=== PATIENT | male | born 1985 | race Caucasian/White ===

== ENCOUNTER 2018-07-30 08:20 | Emergency (ER) | payer OTHER, SELFPAY ==
[2018-07-30 08:26] VITALS: BP 170/110; PULSE 110; RESP 13; TEMP 37; O2SAT 98
--- NOTE | 2018-07-30 08:50 | ED_ITS ---
HPI - Dental/Oral General Chief complaint: Dental/Oral Stated complaint: swollen left side of face Time Seen by Provider: 07/30/18 08:39 Source: patient and family () Mode of arrival: ambulatory Limitations: no limitations History of Present Illness HPI Narrative: This is a 33-year-old male comes to the emergency department complaint of some dental pain. Patient states he had some mild swelling yesterday of the face, went to bed and woke up today and had significant swelling that she can just under the eye. Patient states he continues to have pain but it has been controlled with Aleve. Patient states he had a root canal in that tooth in the past and so he was set up for an appointment today with dentistry but then worsened overnight so he came here. Patient denies any fevers, he denies any difficulty with breathing, he denies any purulent drainage or obvious areas of abscess within the mouth. Patient denies any nausea or vomiting, no difficulty breathing. No other GI or urinary symptoms. Patient states he is otherwise healthy with no other past medical issues. No allergies to medications. Other than his root canal he is denying any other surgeries. Location: Tooth # 2 1. pain Related Data Previous Rx's Medication Instructions Recorded penicillin V potassium 500 mg PO QID #40 tab 07/30/18 Allergies Allergy/AdvReac Type Severity Reaction Status Date / Time No Known Drug Allergies Allergy Verified 07/30/18 08:55 Review of Systems Review of Systems ROS Unobtainable: All systems reviewed & are unremarkable except as noted in HPI and below ENT Ears, Nose, Mouth, and Throat: Reports as per HPI, Denies change in voice, Reports dental pain, Denies facial pain, Denies hoarseness, Denies lip swelling , Denies throat swelling, Denies tongue swelling and Reports other (facial swelling) Cardiovascular Denies dyspnea and Denies dyspnea on exertion Respiratory Denies chest congestion, Denies cough, Denies dyspnea, Denies dyspnea on exertion and Denies wheezing Gastrointestinal Gastrointestinal: Denies abdominal pain, Denies change in bowel habits, Denies diarrhea, Denies nausea and Denies vomiting Integumentary/Breasts Denies erythema and Denies rash Allergic/Immunologic Denies lip swelling, Denies throat swelling, Denies tongue swelling and Denies wheezing Exam Narrative Exam Narrative: GEN: well nourished, well appearing male, alert and oriented x 3 , patient appears to be in mild distress. HEENT: Atraumatic, pupils are equal round reactive to light, extraocular movements are intact, nares are clear, TMs are clear with no fluid, there is no conjunctival pallor. Throat is clear without any exudates, erythema, tonsillar enlargement or uvular deviation, patient has swelling of the right cheek extending up underneath the eye, there is some mild induration but no fluctuance. Patient does not appear to have any oropharyngeal swelling that I can appreciate. He has some mild tenderness over the upper left tooth. Patient does not have any swelling of the posterior oropharynx, tongue or underneath the tongue. Patient has no muffled voice, he has no hoarseness. Patient does not appear to have poor dentition. I does not any tenderness with palpation over the teeth. I am unable to palpate any enlargement or changes to the [place] a gland or ducts in the mouth. HEART: Regular rate and rhythm without murmur, clicks, rubs. LUNGS:Lungs clear to auscultation, no wheezes, rales, crackles, chest moves symmetrically ABD:bowel sounds normal, soft, non-tender, no guarding, rebound, rigidity, no masses noted, no hepatosplenomegaly MSCL: Non-tender, no muscle atrophy, muscles strength 5/5 upper and lower extremities, full range of motion, normal gait NEURO:CN 2-12 intact, sensation normal Initial Vital Signs Initial Vital Signs: Vital Signs Temperature 98.6 F 07/30/18 08:26 Pulse Rate 110 H 07/30/18 08:26 Respiratory Rate 13 07/30/18 08:26 Blood Pressure 170/110 H 07/30/18 08:26 Pulse Oximetry 98 07/30/18 08:26 Course Orders Ordered: Discontinued Medications Dexamethasone (Decadron) 10 mg PO NOW ONE Stop: 07/30/18 08:49 Last Admin: 07/30/18 09:15 Dose: 10 mg Penicillin V Potassium (Veetids) 500 mg PO NOW ONE Stop: 07/30/18 08:49 Last Admin: 07/30/18 09:15 Dose: 500 mg Vital Signs - 8 hr 07/30/18 08:26 Temperature 98.6 F Pulse Rate 110 H Respiratory Rate 13 Blood Pressure 170/110 H Pulse Oximetry 98 MDM - Dental/Oral MDM Narrative Medical decision making narrative: I discussed with patient we did discuss doing an IV, lab work and imaging but patient is comfortable starting with oral antibiotics and a single dose of Decadron for swelling with close follow-up. He is planning to call the dentist today for his appointment today. We did discuss if he had any increase in swelling he needs to return to have all of that done. Patient is not having any airway involvement at this time, suspect facial cellulitis from dental infection. No signs of sialadenitis, prostatitis or other facial issues, there is no signs of periorbital or orbital cellulitis. Discharge Plan Departure Patient Disposition: Home Clinical Impression: Cellulitis of face Discharge Date/Time: 07/30/18 09:50 Interventions: ED Discharge Assessment Last Done: 07/30/18 09:50 Instructions: DI for Cellulitis -- Adult Activity Restrictions/Additional Instructions: Call your dentist today to see if they wish you to tender appointment today or follow-up in the next several days. Take penicillin every 4 hr until gone. Continue Aleve and/or Tylenol as needed for pain. Return for any increase in swelling, redness, swelling of the mouth, tongue, lips, difficulty breathing, stridor or hoarseness, vision changes, rapidly increasing pain or other new or concerning symptoms. Prescriptions: New penicillin V potassium 500 mg tablet 500 mg PO QID Qty: 40 RF: 0
[2018-07-30] MEDS: DEXAMETHASONE 10 MG/ML VIAL PO (09:15)
[2018-07-30] MEDS: PENICILLIN VK 250 MG TABLET 500 MG PO (09:15)
[2018-07-30 09:50] VITALS: BP 141/93; PULSE 84; RESP 18; O2SAT 98
== END 2018-07-30 09:50 | disposition home or self-care (01) ==
PROVIDERS: Emergency Provider Emergency Medicine
DX: L03.211 Cellulitis of face (principal)
CPT/HCPCS: 99282; 99283; J1100

== ENCOUNTER → 2025-05-07 08:26 | Outpatient (CLI) | payer OTHER, SELFPAY ==
[2025-05-07 09:14] LABS: Hematocrit 43.8 % (41-53); Hemoglobin 15.2 g/dL (13.5-17.5); Mean Corpuscular HGB Conc 34.7 % (30-36); Mean Corpuscular Hemoglobin 31.2 PG (26-34); Mean Corpuscular Volume 90.1 fL (80-100); Platelet Count 294 X10^3/uL (150-400)
[2025-05-07 09:29] LABS: Hemoglobin A1C% w Est Avg Glu 5.3 % (4.0-6.0)
[2025-05-07 09:36] LABS: Alanine Aminotransferase 59 IU/L (<50); Albumin 4.7 g/dL (3.5-5.0); Albumin Globulin Ratio 1.5 (1.0-2.8); Alkaline Phosphatase 45 U/L (38-126); Blood Urea Nitrogen 10 mg/dL (9-20); Calcium 9.5 mg/dL (8.4-10.2); Carbon Dioxide 28 mmol/L (22-32); Chloride 100 mmol/L (98-107); Cholesterol 286 mg/dL (140-199); Estimated Glomerular Filt Rate > 60 mL/min (>60); Globulin 3.1 g/dL (1.7-4.1); Glucose 95 mg/dL (70-99); HDL Cholesterol 64 mg/dL (40-60); HEMOLYSIS < 15 (0-50); Potassium 4.5 mmol/L (3.4-5.1); Sodium 137 mmol/L (137-145); Total Protein 7.8 g/dL (6.3-8.2); Triglycerides 225 mg/dL (35-150)
[2025-05-07 10:21] LABS: HIV 1 & 2 Ab/Ag 4th Gen Combo NEGATIVE (NEGATIVE); Hep C Virus Ab w/Reflex Quant NEGATIVE s/c (NEGATIVE)
== END ==
PROVIDERS: PCP Family Medicine; Referring Provider Family Medicine; Visit Provider Family Medicine
DX: Z00.00 Encounter for general adult medical examination without abnormal findings (principal); I10 Essential (primary) hypertension; E66.811 Obesity, class 1; Z13.1 Encounter for screening for diabetes mellitus
CPT/HCPCS: 36415; 80053; 80061; 83036; 85027; 86803; 87389